=== PATIENT | male | born 1990 | race African-American/Black ===

== ENCOUNTER 2017-03-04 16:15 | Emergency (ER) | payer SELFPAY ==
[~2017-03-04] VITALS: Ht 167.6 cm; Wt 74.8 kg
[2017-03-04 16:30] VITALS: BP 102/47
[2017-03-04 16:57] LABS: BILIRUBIN,URINE NEGATIVE (NEG); GLUCOSE,URINE NEGATIVE (NEG); NITRITE,URINE NEGATIVE (NEG); PROTEIN,URINE NEGATIVE (NEG-TRACE)
[2017-03-04 17:02] LABS: BACTERIA,URINE 0 /HPF (0-FEW); RBC,URINE 0 /HPF (0-2); WBC,URINE OCC /HPF (0-4)
[2017-03-04] MEDS ORDERED: METRONIDAZOLE 500 MG TABLET. PO ONE (17:15)
[2017-03-04] MEDS ORDERED: CEFTRIAXONE IM 250 MG VIAL. IM ONE (17:15)
[2017-03-04] MEDS ORDERED: IBUPROFEN 800 MG TABLET. PO ONE (17:15)
[2017-03-04] MEDS ORDERED: AZITHROMYCIN 250 MG TABLET. PO ONE (17:15)
--- NOTE | 2017-03-04 17:16 | PHYS DOC ---
Past Medical History Past Medical History: No Pertinent History Past Surgical History: No Surgical History Additional Information: 0.5 PPD Alcohol Use: Occasionally Drug Use: Marijuana Adult General Chief Complaint Chief Complaint: SEXUALLY TRANSMITTED DISEASE [facility] HPI Patient is a 26 year old male presents the emergency department stating that his girlfriend told him 2 weeks ago that she was positive for Trichomonas. He states that he has not been treated. He states that she has however been treated. Patient is unsure how many sexual partners he has had. Patient denies any penile drainage. He does state however he has some mid to lower back pain. He states that occasionally his urine is dark in color occasionally he has less darker. He denies any abdominal pain denies any nausea. Does state however he has a headache bilateral has not taken anything. Review of Systems Review of Systems Constitutional: Denies fever or chills [] Eyes: Denies change in visual acuity, redness, or eye pain [] HENT: Denies nasal congestion or sore throat [] Respiratory: Denies cough or shortness of breath [] Cardiovascular: No additional information not addressed in HPI [] GI: Denies abdominal pain, nausea, vomiting, bloody stools or diarrhea [] : Denies dysuria or hematuria. C/o of girlfriend being positive for Trichomonas. Musculoskeletal: Denies back pain or joint pain [] Integument: Denies rash or skin lesions [] Neurologic: Denies headache, focal weakness or sensory changes [] Current Medications Current Medications Current Medications Medications (Trade) Dose Ordered Sig/Carly Start Time Stop Time Status Last Admin Dose Admin Azithromycin (Zithromax) 1,000 mg 1X ONCE 03/04/17 17:15 03/04/17 17:16 DC 03/04/17 17:27 1,000 MG Ceftriaxone Sodium (Rocephin Im) 250 mg 1X ONCE 03/04/17 17:15 03/04/17 17:16 DC 03/04/17 17:32 250 MG Ibuprofen (Motrin) 800 mg 1X ONCE 03/04/17 17:15 03/04/17 17:16 DC Metronidazole (Flagyl) 2,000 mg 1X ONCE 03/04/17 17:15 03/04/17 17:16 DC 03/04/17 17:27 2,000 MG Allergies Allergies Allergies Coded Allergies Type Severity Reaction Last Updated Verified No Known Drug Allergies 02/16/15 No Physical Exam Physical Exam Constitutional: Well developed, well nourished, no acute distress, non-toxic appearance. [] HENT: Normocephalic, atraumatic, bilateral external ears normal, oropharynx moist, no oral exudates, nose normal. [] Eyes: PERRLA, EOMI, conjunctiva normal, no discharge. [] Neck: Normal range of motion, no tenderness, supple, no stridor. [] Cardiovascular:Heart rate regular rhythm, no murmur [] Lungs & Thorax: Bilateral breath sounds clear to auscultation [] Skin: Warm, dry, no erythema, no rash. [] Back: No tenderness, left CVA tenderness. [] Extremities: No tenderness, no cyanosis, no clubbing, ROM intact, no edema. [] Neurologic: Alert and oriented X 3, normal motor function, normal sensory function, no focal deficits noted. [] Psychologic: Affect normal, judgement normal, mood normal. [] No penile drainage noted. No lesions noted. No testicular pain noted. Current Patient Data Vital Signs Vital Signs Date Time Temp Pulse Resp B/P Pulse Ox O2 Delivery O2 Flow Rate FiO2 03/04/17 16:30 99.9 84 14 102/47 96 Room Air 99.9 Lab Values Laboratory Tests Test 03/04/17 16:50 Urine Collection Type Void Urine Color Anastasia Urine Clarity Clear Urine pH 6.0 Urine Specific [place] 1.025 Urine Protein Negativemg/dL (NEG-TRACE) Urine Glucose (UA) Negativemg/dL (NEG) Urine Ketones (Stick) Tracemg/dL (NEG) Urine Blood Negative (NEG) Urine Nitrite Negative (NEG) Urine Bilirubin Negative (NEG) Urine Urobilinogen Dipstick 1.0mg/dL (0.2 mg/dL) Urine Leukocyte Esterase Negative (NEG) Urine RBC 0/HPF (0-2) Urine WBC Occ/HPF (0-4) Urine Bacteria 0/HPF (0-FEW) Urine Mucus Marked/LPF EKG EKG [] Radiology/Procedures Radiology/Procedures [] Course & Med Decision Making Course & Med Decision Making Pertinent Labs and Imaging studies reviewed. (See chart for details) Urinalysis was negative. Patient was treated for STDs was provided with Rocephin , Zithromax and Flagyl. Patient will be discharged home in stable condition his recommended to avoid sexual intercourse for the next 2 weeks. Also instructed patient that if he has had sexual intercourse with his girlfriend prior to him being treated that she may need to be treated again. Patient will be discharged home with recommendations to follow-up the primary care physician in the next 5- 7 days. Signs symptoms to return back to emergency department been provided. [] Dragon Disclaimer Dragon Disclaimer This electronic medical record was generated, in whole or in part, using a voice recognition dictation system. Departure Departure Impression: Primary Impression: Exposure to STD Additional Impressions: Back pain Headache Disposition: HOME, SELF-CARE Condition: STABLE Referrals: NON,STAFF (PCP) Patient Instructions: Back Pain, Adult, General Headache Without Cause, Easy-to -Read, Sexually Transmitted Disease, [id number] Additional Instructions: You have been treated for sexually transmitted infections. You have also been given medication for your headache. Urine was negative for infection. You have also been tested for Sexually transmitted infections: these results will be back in 2-3 days you will be notified by phone if the results are positive Drink plenty of fluids such as water and cranberry juice. Avoid cranberry juice cocktail, carbonated beverages, caffeine, alcohol and citrus fruits as these are considered irritants to the bladder Followup with primary care provider in 5-7 days Return to emergency department as needed for signs and symptoms that become worse. Problem Qualifiers NATASHA ALICIA APRN Mar 04, 2017 17:16
== END 2017-03-04 17:51 | disposition home or self-care (01) ==
LOC: ER 16:15
DX: Z20.2 Contact with and (suspected) exposure to infections with a predominantly sexual mode of transmission (principal); M54.5 Low back pain; R51 Headache; F17.200 Nicotine dependence, unspecified, uncomplicated; F12.10 Cannabis abuse, uncomplicated
CPT/HCPCS: 81001; 87491; 87591; 96372; 99284; J0696; Q0144

== ENCOUNTER 2017-06-05 01:41 | Emergency (ER) | payer OTHER ==
[~2017-06-05] VITALS: Ht 170.2 cm; Wt 74.8 kg
[2017-06-05 01:45] VITALS: BP 130/65
--- NOTE | 2017-06-05 01:58 | PHYS DOC ---
Past Medical History Past Medical History: No Pertinent History Past Surgical History: No Surgical History Alcohol Use: Occasionally Drug Use: Marijuana Adult General Chief Complaint Chief Complaint: FOREIGNBODY EAR HPI HPI 26-year-old male presenting to the emergency department today with sensation of foreign body in his right ear. He reports it from his right ear into his left ear. Onset 4 hours. No alleviating or exacerbating factors. No fevers or chills. Nonradiating. Intermittent. No specific timing. Review of systems is negative for chest pain shortness of breath fevers chills nausea vomiting. All other review of systems is negative unless otherwise noted in history of present illness. ED course: 26-year-old gentleman presenting with foreign body sensation in his right ear. Pertinent physical exam findings showed ears there were normal. No foreign bodies in the ears. Patient discharged home to follow up with PCP in 2- 3 days. The patient was then discharged home in stable condition to follow up with their primary care physician over the next 2-3 days. They were to return if their symptoms worsened or if they were concerned for any reason. Face-to- face discharge instructions and return precautions were given. Patient's questions were answered to their satisfaction. Patient is comfortable plan. Review of Systems Review of Systems SEE ABOVE. Allergies Allergies Allergies Coded Allergies Type Severity Reaction Last Updated Verified No Known Drug Allergies 02/16/15 No Physical Exam Physical Exam SEE ABOVE Constitutional: Well developed, well nourished, no acute distress, non-toxic appearance. [] HENT: Normocephalic, atraumatic, bilateral external ears normal, oropharynx moist, no oral exudates, nose normal. [] Eyes: PERRLA, EOMI, conjunctiva normal, no discharge. [] Neck: Normal range of motion, no tenderness, supple, no stridor. [] Cardiovascular:Heart rate regular rhythm, no murmur [] Lungs & Thorax: Bilateral breath sounds clear to auscultation [] Abdomen: Bowel sounds normal, soft, no tenderness, no masses, no pulsatile masses. [] Skin: Warm, dry, no erythema, no rash. [] Back: No tenderness, no CVA tenderness. [] Extremities: No tenderness, no cyanosis, no clubbing, ROM intact, no edema. [] Neurologic: Alert and oriented X 3, normal motor function, normal sensory function, no focal deficits noted. [] Psychologic: Affect normal, judgement normal, mood normal. [] Current Patient Data Vital Signs Vital Signs Date Time Temp Pulse Resp B/P (MAP) Pulse Ox O2 Delivery O2 Flow Rate FiO2 06/05/17 01:45 98.8 114 18 96 Room Air 98.8 EKG EKG [] Radiology/Procedures Radiology/Procedures [] Course & Med Decision Making Course & Med Decision Making Pertinent Labs and Imaging studies reviewed. (See chart for details) [] Dragon Disclaimer Dragon Disclaimer This electronic medical record was generated, in whole or in part, using a voice recognition dictation system. Departure Departure Impression: Primary Impression: Foreign body sensation in ear canal Disposition: HOME, SELF-CARE Condition: STABLE Referrals: NO PCP (PCP) Patient Instructions: Ear Foreign Body Additional Instructions: Thank you for allowing us to participate in your care today. Followup with your primary care physician in 3 days if your symptoms do not improve. Call your Primary Doctor tomorrow and inform them of your visit today. If you do not have a primary care provider you can ask for a list of our primary care providers. Return to the emergency department you have any new or concerning findings. This should be evaluated by the primary care physician and any necessary consulting services for continued management within a few days after discharge. Return to emergency room if you have any new or concerning symptoms including but not limited to fever, chills, nausea, vomiting, intractable pain, any new rashes, chest pain, shortness of air, uncontrolled bleeding, difficulty breathing, and/or vision loss. JADE BLANTON MD Jun 05, 2017 01:58
== END 2017-06-05 02:20 | disposition home or self-care (01) ==
LOC: ER 01:41
DX: H93.8X1 Other specified disorders of right ear (principal); F12.10 Cannabis abuse, uncomplicated
CPT/HCPCS: 99281

== ENCOUNTER 2022-01-24 12:26 | Emergency (ER) | payer SELFPAY ==
[~2022-01-24] VITALS: Ht 167.6 cm; Wt 84.5 kg
[2022-01-24 12:26] VITALS: BP 143/74
[~2022-01-24 12:26] MED LIST: NAPR-683 PO; TIZA4CAP3 PO
== END 2022-01-24 13:20 | disposition left against medical advice (07) ==
LOC: ER 12:26
DX: A64 Unspecified sexually transmitted disease (principal); Z53.21 Procedure and treatment not carried out due to patient leaving prior to being seen by health care provider